=== PATIENT | male | born 1985 | race Caucasian/White ===

== ENCOUNTER 2019-04-12 21:53 | Emergency (ER) | payer OTHER ==
[~2019-04-12] VITALS: Ht 182.9 cm; Wt 86.2 kg
[~2019-04-12 21:53] MED LIST: ALBU90I INH; ALBU90OI INH; AMOX500 PO; Bactrim Ds Tab1 EACH PO; CEPH500 PO; CLIN150 PO; CLON.1 PO; CRUTCH4 USE; CYCL10 PO; DIAZ5 PO; DIPATR PO; FAMO20 PO; HYDACE5 PO; HYDACE5325 PO; IBUP600 PO; INCARCERATION; KETO10 PO; NAPR500 PO; NAPR550 PO; ONDA8 PO; OTC COLD MEDS; OXYACE5T PO; OXYC30 PO; OXYC30ER PO; PENVK500 PO; PERIDEX; PRED20 PO; PROACE100 PO; PROM25 PO; RXCLIN PO; RXCYCL10 PO; RXNAPNA550 PO; RXOXYACE PO; RXPROACE PO; SUBOXONE 8 MG-1 EACH SL; SULTRIDS PO; [UNRECOGNIZED DRUG - OTHER] PO
[2019-04-12] MEDS ORDERED: BUPR100 PO (22:55)
[2019-04-12 22:57] LABS: BASOPHILS ABSOLUTE AUTO 0.03 K/mm3 (0.00-0.23); BASOPHILS PERCENT AUTO 1 % (0-2); EOSINOPHILS ABSOLUTE AUTO 0.28 K/mm3 (0.00-0.68); EOSINOPHILS PERCENT AUTO 5 % (0-6); Hematocrit 48.2 % (37.0-53.0); Hemoglobin 15.9 g/dL (13.5-17.5); IMMATURE GRAN ABSOLUTE AUTO 0.01 K/mm3 (0.00-0.10); IMMATURE GRAN PERCENT AUTO 0 % (0-1); LYMPHOCYTES ABSOLUTE AUTO 2.04 K/mm3 (0.84-5.20); LYMPHOCYTES PERCENT AUTO 33 % (21-46); MONOCYTES PERCENT AUTO 10 % (4-13); Mean Corpuscular HGB 31.6 pg (26.0-34.0); Mean Corpuscular Volume 96 fL (80-100); NEUTROPHILS ABSOLUTE AUTO 3.31 K/mm3 (1.96-9.15); NEUTROPHILS PERCENT AUTO 53 % (41-73); Platelet Count 205 K/mm3 (150-400); RDW Coefficient Variation 12.2 % (11.7-14.2); RDW Standard Deviation 43.5 fL (35.1-46.3); Red Blood Cell Count 5.03 M/mm3 (4.30-5.90); White Blood Cell Count 6.27 K/mm3 (4.00-11.30)
[2019-04-12 23:16] LABS: Alanine Aminotransfer (ALT/SGP 28 U/L (12-78); Albumin, Blood 3.6 g/dL (3.4-5.0); Alk Phos 40 U/L (50-136); Anion Gap 6 mmol/L (6-16); Aspartate Aminotrans (AST/SGOT 17 U/L (12-37); Bilirubin, Total 0.2 mg/dL (0.1-1.0); Blood Urea Nitrogen 19 mg/dL (8-24); Bun/Creatinine Ratio 23.7 (12.0-20.0); CO2, Blood 23 mmol/L (21-32); Calcium, Blood 8.6 mg/dL (8.5-10.1); Chloride, Blood 112 mmol/L (98-108); Globulin, Blood 3.6 g/dL (2.2-4.0); Glomerular Filtration Rate >60 (60-); Glucose, Blood 99 mg/dL (70-99); Potassium, Blood 4.5 mmol/L (3.5-5.5); Sodium, Blood 141 mmol/L (136-145); Total Protein, Blood 7.2 g/dL (6.4-8.2)
[2019-04-13] MEDS ORDERED: KETO10 PO (00:08)
== END 2019-04-13 00:28 | disposition home or self-care (01) ==
LOC: ER 21:53
PROVIDERS: Physician Assistant
DX: G56.03 Carpal tunnel syndrome, bilateral upper limbs (principal); F17.210 Nicotine dependence, cigarettes, uncomplicated; Z88.0 Allergy status to penicillin; Z88.5 Allergy status to narcotic agent; Z79.899 Other long term (current) drug therapy
CPT/HCPCS: 36415; 80053; 83880; 85025; 99283

== ENCOUNTER 2020-03-26 18:48 | Emergency (ER) | payer OTHER ==
[~2020-03-26] VITALS: Ht 182.9 cm; Wt 86.2 kg
[~2020-03-26 18:48] MED LIST changes: +BUPR100 PO
== END 2020-03-26 20:09 | disposition home or self-care (01) ==
LOC: ER 18:48
DX: J31.0 Chronic rhinitis (principal); B97.89 Other viral agents as the cause of diseases classified elsewhere; F17.210 Nicotine dependence, cigarettes, uncomplicated; Z88.0 Allergy status to penicillin; Z88.5 Allergy status to narcotic agent; Z79.899 Other long term (current) drug therapy
CPT/HCPCS: 99284

== ENCOUNTER 2020-04-30 19:23 | Emergency (ER) | payer OTHER ==
[~2020-04-30] VITALS: Ht 182.9 cm; Wt 83.9 kg
== END 2020-04-30 20:58 | disposition left against medical advice (07) ==
LOC: ER 19:23
DX: H57.12 Ocular pain, left eye (principal); Z53.21 Procedure and treatment not carried out due to patient leaving prior to being seen by health care provider
CPT/HCPCS: 99282